=== PATIENT | female | born 1980 | race Caucasian/White ===

== ENCOUNTER 2016-10-15 06:28 | Emergency (ER) | payer OTHER ==
[~2016-10-15] VITALS: Ht 154.9 cm; Wt 65.8 kg
[2016-10-15 06:35] VITALS: BP 127/88
--- NOTE | 2016-10-15 07:11 | ED GI/GU/ABDOMINAL COMPLAINT ---
History of Present Illness General Chief Complaint: Female Urogenital Problems Stated Complaint: ?UTI STARTED ANTIBIOTICS ON .NOT GETTING JANIS Source: patient Exam Limitations: no limitations Vital Signs & Intake/Output Vital Signs & Intake/Output Vital Signs Date Time Temp Pulse Resp B/P B/P Pulse O2 O2 Flow FiO2 Mean Ox Delivery Rate 10/15 0635 97.9 85 18 127/88 100 Room Air Allergies Coded Allergies: No Known Drug Allergies (10/06/15) Reconcile Medications Desog-E.estradiol/E.estradiol (Azurette 28 Day Tablet) 0.15 MG-0.02 MG (21)/0.01 MG (5) TABLET 1 TAB PO DAILY BC (Reported) Triage Note: PT TO ED WITH COMPLAINTS OF A UTI. PT WAS PRESCRIBED NITROFURANTOIN ON TUESDAY BUT STATES THAT THE UTI IS NOT GETTING ANY BETTER. Triage Nurses Notes Reviewed? yes ? n Is pt currently ? No Onset: Gradual Duration: day(s):, continues in ED, getting worse Quality/Severity: moderate Location: suprapubic Radiation: no radiation HPI: Patient presents for evaluation of urinary tract signs and symptoms that began about 1 week ago, gradual in onset. Patient has been on Macrobid for 3 days without improvement and maybe even a little worsening. She states that she has felt chills and a little nauseous and is also experiencing urinary hesitancy. She is also feeling a suprapubic abdominal pain intermittently. She denies any vaginal issues at this time and she is not mentrating. Past History Travel History Traveled to [place] past 21 day No Medical History Any Pertinent Medical History? see below for history Neurological: NONE EENT: NONE Cardiovascular: NONE Respiratory: NONE Gastrointestinal: NONE Hepatic: NONE Renal: NONE Musculoskeletal: NONE Psychiatric: NONE Endocrine: NONE Surgical History Surgical History: non-contributory Psychosocial History What is your primary language Bengali Tobacco Use: Never used ETOH Use: denies use Illicit Drug Use: denies illicit drug use Family History Hx Contributory? No Review of Systems Review of Systems Constitutional: Reports: no symptoms. EENTM: Reports: no symptoms. Respiratory: Reports: no symptoms. Cardiovascular: Reports: no symptoms. GI: Reports: no symptoms. Genitourinary: Reports: see HPI. Musculoskeletal: Reports: no symptoms. Skin: Reports: no symptoms. Neurological/Psychological: Reports: no symptoms. Hematologic/Endocrine: Reports: no symptoms. Immunologic/Allergic: Reports: no symptoms. All Other Systems: Reviewed and Negative Physical Exam Physical Exam Gastrointestinal: see below Comments: Gen.: Well-nourished, well-developed, no acute respiratory distress. Head: Normocephalic, atraumatic. Eyes: Normal inspection bilaterally Ears: Normal inspection bilaterally Nose: Normal inspection Throat/mouth : Moist mucosa Neck: Supple, full range of motion, no goiter Lungs: Quiet respirations Back: Normal range of motion, no CVAT Abdomen: Soft, nontender, nondistended, normal bowel sounds Extremities: Normal range of motion grossly Neurologic: Cranial nerves grossly intact, speech is clear Skin: warm and dry Psychiatric: Calm, cooperative, no apparent delusions or hallucinations Core Measures ACS in differential dx? No Severe Sepsis Present: No Septic Shock Present: No Progress Differential Diagnosis: UTI/pyelo, CYSTITIS, Plan of Care: Orders Procedure Date/time Status CULTURE,URINE 10/15 710 Active URINE 10/16 707 Complete URINALYSIS 10/16 707 Complete Laboratory Tests 10/15/16 0738: Urinalysis LIGHT H, Urine Color [place], Urine Clarity CLEAR, Urine pH 5.5, Ur Specific [place] >= 1.030, Urine Protein 30 H, Urine Ketones 15 H, Urine Nitrite NEG, Urine Bilirubin NEG@ICTO, Urine Urobilinogen 1.0, Ur Leukocyte Esterase TRACE H, Ur Microscopic SEDIMENT EXAMINED, Urine RBC 10-15 H, Urine WBC 1-3 H, Ur Epithelial Cells MOD H, Urine Bacteria MANY H, Urine Hemoglobin TRACE-INTACT, Urine Glucose NEG, Urine Test NEGATIVE Microbiology 10/15 737 URINE ROUT: Urine Culture - RECD Initial ED EKG: none Comments: 10/15/2016 8:32:22 AM I have updated Kerline on her urinalysis results. She states she had to "force" the urine specimen and so I find this to be difficult to interpret given that this is a first urine of the day. In addition the patient is actively being treated for urinary tract infection which has likely clear the urine to a certain extent. I explained this to Kerline and she understands difficulty in interpreting the urinalysis results. A culture has been ordered and we will use this to modify her treatment. I have also advised her that she should follow-up with her primary care doctor or more specifically a urologist if she has not improved over the weekend. Departure Departure Disposition: HOME OR SELF CARE Condition: Stable Clinical Impression Primary Impression: Cystitis Referrals: MIRNA COOK,Estephania WHYTE (PCP/Family) Additional Instructions: Discontinue the nitrofurantoin and begin Bactrim. Take Pyridium as needed for bladder spasms. Follow-up with your primary care physician or the urologist listed on Tuesday if not improved. Return if fever, back pain or any other concerns or worsening. Thank you for choosing the [facility] Emergency Department for your care. It was a pleasure to serve you today. James Gardner M.D. [facility] Departure Forms: Customer Survey General Discharge Information Prescriptions: Current Visit Scripts Sulfamethoxazole/Trimethoprim (Bactrim Ds Tablet) 1 TAB PO BID #6 TAB Phenazopyridine HCl (Pyridium) 1 TAB PO TID PRN BLADDER SPASMS #9 TAB
[2016-10-15] MEDS ORDERED: AZURETTE 28 DA1 EACH PO (08:03)
[2016-10-15] MEDS ORDERED: PYRIDIUM200 M1 PO (08:36)
[2016-10-15] MEDS ORDERED: BACTRIM DS TAB1 EACH PO (08:36)
[2016-10-16] MEDS ORDERED: PERCOCET 5-3251 EACH PO (07:51)
[2016-10-16] MEDS ORDERED: IBUPROFEN800 M1 PO (07:51)
[2016-10-16] MEDS ORDERED: ZOFRAN ODT4 M1 SL (07:51)
== END 2016-10-15 08:46 ==
LOC: ERH 06:28
DX: N30.90 Cystitis, unspecified without hematuria (principal)
CPT/HCPCS: 81001; 81025; 87086

== ENCOUNTER 2016-10-16 01:34 | Emergency (ER) | payer OTHER ==
[~2016-10-16] VITALS: Ht 154.9 cm; Wt 65.8 kg
[~2016-10-16 01:34] MED LIST: AZURETTE 28 DA1 EACH PO; BACTRIM DS TAB1 EACH PO; PYRIDIUM200 M1 PO
--- NOTE | 2016-10-16 01:47 | ED GI/GU/ABDOMINAL COMPLAINT ---
History of Present Illness General Chief Complaint: General Adult Stated Complaint: "?UTI, +N+V-D" Source: patient Exam Limitations: no limitations Vital Signs & Intake/Output Vital Signs & Intake/Output Vital Signs Date Time Temp Pulse Resp B/P B/P Pulse O2 O2 Flow FiO2 Mean Ox Delivery Rate 10/16 0350 96.8 83 18 124/65 96 Room Air 10/16 0149 97.5 102 18 146/87 97 Room Air Allergies Coded Allergies: No Known Drug Allergies (UNKNOWN 10/16/16) Reconcile Medications Desog-E.estradiol/E.estradiol (Azurette 28 Day Tablet) 0.15 MG-0.02 MG (21)/0.01 MG (5) TABLET 1 TAB PO DAILY BC (Reported) Ibuprofen 800 MG TABLET 1 TAB PO TID PRN pain Ondansetron (Zofran Odt) 4 MG TAB.RAPDIS 1 TAB SL TID PRN nausea Oxycodone HCl/Acetaminophen (Percocet 5-325 MG Tablet) 5 MG-325 MG TABLET 1 TAB PO 4XDP PRN PAIN TEN...[id number] Phenazopyridine HCl (Pyridium) 200 MG TABLET 1 TAB PO TID PRN BLADDER SPASMS Sulfamethoxazole/Trimethoprim (Bactrim Ds Tablet) 800 MG-160 MG TABLET 1 TAB PO BID uti Triage Nurses Notes Reviewed? yes ? n Is pt currently ? No Onset: Gradual Duration: day(s):, waxing and waning Timing: recent history Quality/Severity: cramping, vomiting Location: suprapubic Radiation: no radiation Activities at Onset: "I've been on 2 different antibiotics for formal UTI." Prior Abdominal Problems: similar symptoms Modifying Factors: Worsens With: urinating. Associated Symptoms: abdominal pain, dysuria, nausea/vomiting HPI: 36-year-old woman prior good health presents with 2-3 days of dysuria and lower abdominal pain. She states that she presented to a clinic where she was given nitrofurantoin for a UTI. She states that at that time she had dysuria and increased frequency. Her symptoms did not improve after 24 hours. She presented to the emergency department where she was given Bactrim and Pyridium. She states that the discomfort has continued. Also, starting this evening she began vomiting. She has no diarrhea fever or chills dyspnea cough or back pain. She has no vaginal discharge and was last sexually active in March 2016. Past History Travel History Traveled to [place] past 21 day No Medical History Any Pertinent Medical History? see below for history Neurological: NONE EENT: NONE Cardiovascular: NONE Respiratory: NONE Gastrointestinal: NONE Hepatic: NONE Renal: NONE Musculoskeletal: NONE Psychiatric: NONE Endocrine: NONE Surgical History Surgical History: non-contributory Psychosocial History What is your primary language Citizen Of [place] Family History Hx Contributory? No Review of Systems Review of Systems Constitutional: Reports: no symptoms. EENTM: Reports: no symptoms. Respiratory: Reports: no symptoms. Cardiovascular: Reports: no symptoms. GI: Reports: no symptoms. Genitourinary: Reports: no symptoms. Musculoskeletal: Reports: no symptoms. Skin: Reports: no symptoms. Neurological/Psychological: Reports: no symptoms. Hematologic/Endocrine: Reports: no symptoms. Immunologic/Allergic: Reports: no symptoms. All Other Systems: Reviewed and Negative Physical Exam Physical Exam General Appearance: well developed/nourished, mild distress Head: atraumatic, normal appearance Eyes: Bilateral: normal appearance. Ears, Nose, Throat, Mouth: hearing grossly normal Neck: normal inspection, supple, full range of motion, normal alignment Respiratory: normal breath sounds, chest non-tender, no respiratory distress, quiet respiration Cardiovascular: regular rate/rhythm Gastrointestinal: normal bowel sounds, soft, mild suprapubic tenderness and right lower quadrant tenderness to palpation. No rebound no guarding. Pelvic: white discharge consistent with yeast. no tenderness to palpation. otherwise normal exam. NO CMT/adnexal tenderness Back: normal inspection Extremities: normal range of motion Neurologic/Psych: no motor/sensory deficits, awake, alert, oriented x 3 Skin: intact, normal color, warm/dry Core Measures ACS in differential dx? No Severe Sepsis Present: No Septic Shock Present: No Progress Differential Diagnosis: appendicitis, UTI/pyelo Plan of Care: Orders Procedure Date/time Status TRICHOMONAS 10/16 0408 Complete POTASSIUM HYDROXIDE (JOHN) 10/16 040 Complete GENITAL CULTURE 10/17 407 Active CHLAMYDIA-GC DNA PROBE 10/17 407 Active LIPASE 10/16 236 Complete COMPREHENSIVE METABOLIC PANEL 10/16 236 Complete CBC WITHOUT DIFFERENTIAL 10/16 236 Complete AMYLASE 10/16 023 Complete URINE 10/16 0136 Complete URINALYSIS 10/16 0136 Complete Current Medications Sig/Deidra Start time Last Medication Dose Stop Time Status Admin Oxycodone/ 1 TAB ONCE ONE 10/16 0800 AC Acetaminophen 10/16 08 (Percocet) Laboratory Tests 10/16/16 0250: Anion Gap 12, Estimated GFR > 60, BUN/Creatinine Ratio 8.3, Glucose 111 H, Calcium 9.4, Total Bilirubin 0.8, AST 22, ALT 28, Alkaline Phosphatase 64, Total Protein 7.0, Albumin 4.0, Globulin 3.0, Albumin/Globulin Ratio 1.3, Amylase 53, Lipase 85, CBC w Diff MAN DIFF ORDERED, RBC 4.52, MCV 84.1, MCH 28.7, RDW 13.0, MPV 8.1, Segmented Neutrophils 76 H, Lymphocytes 21, Monocytes 2, Basophils 1, Platelet Estimate ADEQUATE, Polychromasia 1+, Basophilic Stippling SLIGHT, Ovalocytes FEW, Stomatocytes FEW, PUBS MCHC 34.1, Fld Total RBCs Counted 100 10/16/16 0158: Urine Color ORANG H, Urine Clarity CLEAR, Urine pH 6.0, Ur Specific [place] <= 1.005, Urine Protein NEG, Urine Ketones NEG, Urine Nitrite POS H, Urine Bilirubin NEG, Urine Urobilinogen 1.0, Ur Leukocyte Esterase NEG, Ur Microscopic SEDIMENT EXAMINED, Ur Epithelial Cells FEW, Urine Hemoglobin NEG, Urine Glucose 100 H, Urine Test NEGATIVE Microbiology 10/16 444 GENITAL: GC DNA Probe - RECD 10/16 444 GENITAL: Chlamydia DNA Probe (EVELYNE) - RECD 10/16 444 GENITAL: JOHN Preparation - COMP 10/16 444 GENITAL: Trichomonas Preparation - COMP 10/16 444 GENITAL: Genital Culture - RECD Diagnostic Imaging: Viewed by Me: CT Scan. Discussed w/RAD: CT Scan. Radiology Impression: abd/pelvic ct... left pelvic mass noted... full report below. , U/S - mass abutting the bladder is noted. full report below. Initial ED EKG: none Comments: PATIENT: VINCE BETANCUR PRESENT AGE: 36 PATIENT ACCOUNT NO: [id number] : 80 LOCATION: [facility] ORDERING PHYSICIAN: MATTHIAS MCCLAIN MD SERVICE DATE: 10/16/16 EXAM TYPE: US - US-TRANSVAGINAL EXAMINATION: ULTRASOUND OF THE PELVIS CLINICAL INFORMATION: Left mass. Question ovarian torsion.. COMPARISON: CT from today.. TECHNIQUE: Transabdominal and transvaginal pelvic ultrasound. Doppler evaluation with spectral analysis performed. A transvaginal study was performed in addition to the transabdominal study which did not yield an adequate examination of the uterus and ovaries due to superimposed distended gas-filled loops of bowel. FINDINGS: The uterus is normal in size and appearance, measuring 8.8 x 3.8 x 3.4 cm longitudinally, anteroposteriorly and transversely. The endometrial stripe thickness is normal, measuring 0.4 cm in thickness. Small uterine fibroids are noted. 1 cm fundal fibroid. 0.8 cm left uterine body fibroid. 0.9 cm lower uterine segment fibroid. The cervical length is normal measuring 2.1 cm. Nabothian cysts are present. The ovaries bilaterally are visualized and appear normal, with the right ovary measuring 2.3 x 1 x 2.2 cm and the left ovary measuring 2.1 x 0.9 x 2.2 cm. There is normal arterial and venous Doppler flow to both ovaries. Separate from the left ovary, the soft tissue vascular mass seen on prior CT is again noted. This measures 4.2 x 3.1 x 4.1 cm, abutting the bladder wall. IMPRESSION: No active ovarian torsion at this time. Normal appearance of both ovaries. Redemonstration of the left pelvic mass, which appears separate from the left ovary. This is a vascular solid mass. Etiology is uncertain, though it does abut the bladder wall. Further evaluation is recommended. Contrast-enhanced CT may be of some use to evaluate further. Consider tissue sampling. DICTATED BY: WILLOW CHAVEZ MD DATE/TIME DICTATED:10/16/16647 DYE HOUSE HAND:JOSY DATE/TIME TRANSCRIBED:10/16/16647 CONFIDENTIAL, DO NOT COPY WITHOUT APPROPRIATE AUTHORIZATION. <Electronically signed in Other Vendor System> SIGNED BY: WILLOW CHAVEZ MD 10/16 0656 PATIENT: VINCE BETANCUR PRESENT AGE: 36 PATIENT ACCOUNT NO: [id number] : 80 LOCATION: [facility] ORDERING PHYSICIAN: MATTHIAS MCCLAIN MD SERVICE DATE: 10/16/16 EXAM TYPE: CAT - CT ABD & PELVIS W/O IV CONTRAS EXAMINATION: CT ABDOMEN AND PELVIS WITHOUT CONTRAST CLINICAL INFORMATION: Right lower quadrant pain. Suprapubic pain. COMPARISON: None TECHNIQUE: Multidetector volumetric imaging was performed from the superior aspect of the liver through the pubic symphysis. Sagittal and coronal reformatted images were obtained on the technologist's workstation. DLP: 317 mGy-cm FINDINGS: LUNG BASES: The visualized lung bases are unremarkable. LIVER, GALLBLADDER, AND BILIARY TREE: The liver is normal in size, shape, and attenuation. No focal hepatic lesion or biliary ductal dilatation is present. The gallbladder is unremarkable with no evidence of radiopaque gallstones, gallbladder wall thickening, or obvious pericholecystic inflammatory changes. PANCREAS: Unremarkable. SPLEEN: Unremarkable. ADRENAL GLANDS: Unremarkable. KIDNEYS AND URETERS: The kidneys are normal in size, shape, and attenuation. No hydronephrosis, hydroureter, or calculi seen. No perinephric stranding. BLADDER: There is an irregular mass along the left bladder wall. This could either originate from the bladder or be external to the bladder causing mass effect. This measures 4.5 x 3.9 x 5.8 cm. GASTROINTESTINAL TRACT: The stomach and small bowel are unremarkable. No dilated loops of bowel or evidence of obstruction. No colonic wall thickening or inflammatory change. Moderate colonic stool burden. Normal appendix. No free air or free fluid. ABDOMINAL WALL: No significant hernia is appreciated. LYMPH NODES: Normal. VASCULAR: Unremarkable. PELVIC VISCERA: The uterus is unremarkable. The right adnexa is unremarkable. The mass along the left bladder wall could be of left adnexal origin. OSSEOUS STRUCTURES: No acute or suspicious osseous abnormality. IMPRESSION: Left pelvic mass. Origin is nonspecific on this study. This could be a bladder wall mass or originate from the left adnexa. This could also be an abnormal lymph node, although there is no additional evidence for lymphadenopathy. Further evaluation is recommended. Pelvic ultrasound could be performed to attempt to determine if this is of adnexal origin. DICTATED BY: WILLOW CHAVEZ MD DATE/TIME DICTATED:10/16/16320 DYE HOUSE HAND:JOSY DATE/TIME TRANSCRIBED:10/16/16320 CONFIDENTIAL, DO NOT COPY WITHOUT APPROPRIATE AUTHORIZATION. <Electronically signed in Other Vendor System> SIGNED BY: WILLOW CHAVEZ MD 04/29 /17 0327 Departure Departure Disposition: HOME OR SELF CARE Condition: Stable Clinical Impression Primary Impression: Abdominal pain Secondary Impressions: Mass, Vaginal yeast infection Referrals: MIRNA COOK,Estephania WHYTE (PCP/Family) Departure Forms: Customer Survey General Discharge Information Prescriptions: Current Visit Scripts Oxycodone HCl/Acetaminophen (Percocet 5-325 MG Tablet) 1 TAB PO 4XDP PRN PAIN #10 TAB TEN...[id number] Ibuprofen 1 TAB PO TID PRN pain #60 TAB Ondansetron (Zofran Odt) 1 TAB SL TID PRN nausea #20 TAB Comments 10/16/16, 4:08am... discussed ct scan results with radiologist... ovarian torsion seems unlikely but cannot be ruled out on ct scan... given patient's discomfort, will check transvag u/s to assess for ovarian torsion. 10/16/16, 7:55am... discussed with Dr. Morin who will review ct scan and see patient in follow up. Discussed at great length with patient and family.... she will follow up with Dr. morin and return if her pain returns. ED Attending Observation Initial Observation Note: I have seen and personally examined KRISTINELatriciaVINCE Reardon on 10/16/16 at 0252. I agree with the current emergency department documentation. The disposition (admission or discharge) is uncertain at this time, she needs a period of observation for the following reason(s): The ED Nurse caring for this patient has been personally informed as to what the patient is being observed for.
[2016-10-16 03:02] LABS: MEAN CORPUSCULAR HGB 28.7 PG (27.0-31.0); MEAN CORPUSCULAR HGB CONC 34.1 G/DL (33.0-37.0); MEAN CORPUSCULAR VOLUME 84.1 FL (81.0-99.0); MEAN PLATELET VOLUME 8.1 FL (7.4-10.4); PLATELET COUNT 316 /CUMM (130-400); RED BLOOD CELL CT 4.52 /CUMM (4.20-5.40); WHITE BLOOD CELL COUNT 9.7 /CUMM (4.8-10.8)
--- NOTE | 2016-10-16 03:27 | CT SCAN REPORT ---
EXAMINATION: CT ABDOMEN AND PELVIS WITHOUT CONTRAST CLINICAL INFORMATION: Right lower quadrant pain. Suprapubic pain. COMPARISON: None TECHNIQUE: Multidetector volumetric imaging was performed from the superior aspect of the liver through the pubic symphysis. Sagittal and coronal reformatted images were obtained on the technologist's workstation. DLP: 317 mGy-cm FINDINGS: LUNG BASES: The visualized lung bases are unremarkable. LIVER, GALLBLADDER, AND BILIARY TREE: The liver is normal in size, shape, and attenuation. No focal hepatic lesion or biliary ductal dilatation is present. The gallbladder is unremarkable with no evidence of radiopaque gallstones, gallbladder wall thickening, or obvious pericholecystic inflammatory changes. PANCREAS: Unremarkable. SPLEEN: Unremarkable. ADRENAL GLANDS: Unremarkable. KIDNEYS AND URETERS: The kidneys are normal in size, shape, and attenuation. No hydronephrosis, hydroureter, or calculi seen. No perinephric stranding. BLADDER: There is an irregular mass along the left bladder wall. This could either originate from the bladder or be external to the bladder causing mass effect. This measures 4.5 x 3.9 x 5.8 cm. GASTROINTESTINAL TRACT: The stomach and small bowel are unremarkable. No dilated loops of bowel or evidence of obstruction. No colonic wall thickening or inflammatory change. Moderate colonic stool burden. Normal appendix. No free air or free fluid. ABDOMINAL WALL: No significant hernia is appreciated. LYMPH NODES: Normal. VASCULAR: Unremarkable. PELVIC VISCERA: The uterus is unremarkable. The right adnexa is unremarkable. The mass along the left bladder wall could be of left adnexal origin. OSSEOUS STRUCTURES: No acute or suspicious osseous abnormality. IMPRESSION: Left pelvic mass. Origin is nonspecific on this study. This could be a bladder wall mass or originate from the left adnexa. This could also be an abnormal lymph node, although there is no additional evidence for lymphadenopathy. Further evaluation is recommended. Pelvic ultrasound could be performed to attempt to determine if this is of adnexal origin.
--- NOTE | 2016-10-16 06:56 | ULTRASOUND REPORT ---
EXAMINATION: ULTRASOUND OF THE PELVIS CLINICAL INFORMATION: Left mass. Question ovarian torsion.. COMPARISON: CT from today.. TECHNIQUE: Transabdominal and transvaginal pelvic ultrasound. Doppler evaluation with spectral analysis performed. A transvaginal study was performed in addition to the transabdominal study which did not yield an adequate examination of the uterus and ovaries due to superimposed distended gas-filled loops of bowel. FINDINGS: The uterus is normal in size and appearance, measuring 8.8 x 3.8 x 3.4 cm longitudinally, anteroposteriorly and transversely. The endometrial stripe thickness is normal, measuring 0.4 cm in thickness. Small uterine fibroids are noted. 1 cm fundal fibroid. 0.8 cm left uterine body fibroid. 0.9 cm lower uterine segment fibroid. The cervical length is normal measuring 2.1 cm. Nabothian cysts are present. The ovaries bilaterally are visualized and appear normal, with the right ovary measuring 2.3 x 1 x 2.2 cm and the left ovary measuring 2.1 x 0.9 x 2.2 cm. There is normal arterial and venous Doppler flow to both ovaries. Separate from the left ovary, the soft tissue vascular mass seen on prior CT is again noted. This measures 4.2 x 3.1 x 4.1 cm, abutting the bladder wall. IMPRESSION: No active ovarian torsion at this time. Normal appearance of both ovaries. Redemonstration of the left pelvic mass, which appears separate from the left ovary. This is a vascular solid mass. Etiology is uncertain, though it does abut the bladder wall. Further evaluation is recommended. Contrast-enhanced CT may be of some use to evaluate further. Consider tissue sampling.
[2016-10-16] MEDS ORDERED: PERCOCET 5-3251 EACH PO (07:51)
[2016-10-16] MEDS ORDERED: IBUPROFEN800 M1 PO (07:51)
[2016-10-16] MEDS ORDERED: ZOFRAN ODT4 M1 SL (07:51)
[2016-10-16 07:58] VITALS: BP 122/62
== END 2016-10-16 08:09 ==
LOC: ERH 01:34
PROVIDERS: Pediatrics
DX: R19.09 Other intra-abdominal and pelvic swelling, mass and lump (principal); B37.3 Candidiasis of vulva and vagina
CPT/HCPCS: 87070; 74176; 81001; 81025; 87491; 87591; 96361; 96374; 96375; J1885; J2405

== ENCOUNTER → 2016-10-21 | Day surgery (SDC) | payer OTHER ==
[~2016-10-21] MED LIST changes: +IBUPROFEN800 M1 PO; +PERCOCET 5-3251 EACH PO; +ZOFRAN ODT4 M1 SL
--- NOTE | 2016-10-25 08:50 | Operative Report ---
Operative/Inv Procedure Report Surgery Date: 10/21/16 Name of Procedure: cysto: turbt Pre-Operative Diagnosis: bladder mass. Post-Operative Diagnosis: same Estimated Blood Loss: scant Surgeon/Overhead Line Worker: HARI KEATING MD Anesthesia: laryngeal mask airway Specimens: bladder tumor Complications: none Operative/Procedure Note Note: The patient was taken to the operating room, and placed on the OR table in supine position. Timeout was performed, with the patient awake, to confirm correct patient, procedure, anesthesia, antibiotics, and other pertinent farhan- operative information. After adequate anesthesia and antibiotics, the patient was then placed in lithotomy stirrups, draped and prepped in usual surgical fashion. A 26 Mongolian resectoscope sheath with a 30 angle lens, and 24 Mongolian loop, was inserted into the urethra, and advanced into the bladder without difficulty. Upon entering the bladder, the bladder was noted to be mildly trabeculated. Both ureteral orifices were in their orthotopic position, with clear reflux bilaterally. A solitary 3 Cm lesion was visualized appearing to be an external lesion compressing the left lateral wall of the bladder. No other tumors were seen on thorough and systematic surveillance. Under direct visualization, a 2 cm lesion was resected from superficial to deeper layers were resected in order to get good tissue for pathology. The tumor fragments were evacuated, and sent to pathology. Cauterization of the base of the tumor resection was performed, in order to achieve good hemostasis. The bladder was copiously irrigated once again with 3 L of sorbitol. The resectoscope was removed leaving the bladder full. The bladder was drained by placing a 16 Mongolian Cole catheter, without difficulty, and with clear fluid. 10 mL of sterile water was placed in the balloon, and the Cole catheter was plugged after complete decompression of the bladder. The patient tolerated both procedures well and discharged withpain meds, and antibiotics. The patient is scheduled for follow-up in the office in 2 weeks time. Findings: no obvious bladder tumor: external mass impinging on left wall of bladder. bilat. ureter with clear efflux. Discharge Disposition: PACU CC: HARI KEATING MD
== END ==
LOC: STS 07:00
DX: C67.2 Malignant neoplasm of lateral wall of bladder (principal)
CPT/HCPCS: 81025; 88305; 88307; J0131; J1100; J2250; J2405